=== PATIENT | male | born 1960 | race African-American/Black ===

== ENCOUNTER 2021-09-08 14:17 | Inpatient (IN) | payer MEDICARE, OTHER ==
[~2021-09-08] VITALS: Ht 172.7 cm; Wt 116.6 kg
--- NOTE | 2021-09-08 14:30 | NUR ---
BIB FAMILY TO ER,C/O ACUTE SOB NOTED TODAY - ABOUT 2 HOURS AGO ALERT AND ORIENTED.KEPT COMFORTABLE IN BED.PATIENT ON 2LPM OXYGEN VIA CANULA SATURATING @ 98%. SAFETY PRECAURIONS MAINTAINED
[2021-09-08] MEDS ORDERED: IPRATROPIUM NEB FS 0.5 MG/2.5 ML AMPUL.NEB NEB ONE (15:00)
[2021-09-08] MEDS ORDERED: ALBUTEROL FS 2.5 MG/3 ML VIAL.NEB NEB ONE (15:00)
[2021-09-08] MEDS ORDERED: IPRATROPIUM NEB FS 0.5 MG/2.5 ML AMPUL.NEB ONE (15:13)
[2021-09-08] MEDS ORDERED: ALBUTEROL FS 2.5 MG/3 ML VIAL.NEB ONE (15:13)
[2021-09-08 15:28] LABS: BASOPHILS % (AUTO) 0.2 % (0.0-2.0); EOSINOPHILS % (AUTO) 1.8 % (0.0-6.0); HEMATOCRIT 30 % (39-51); HEMOGLOBIN 9.8 g/dL (13.5-17.5); LYMPHOCYTES # (AUTO) 1.3 K/uL (0.8-4.8); LYMPHOCYTES % (AUTO) 17.3 % (20.0-44.0); MEAN CORPUSCULAR HGB CONC 32 g/dl (31.0-36.0); MEAN CORPUSCULAR VOLUME 90 fL (80-96); MONOCYTES # (AUTO) 0.6 K/uL (0.1-1.30); MONOCYTES % (AUTO) 7.8 % (2.0-12.0); NEUTROPHILS # (AUTO) 5.5 K/uL (1.8-8.9); NEUTROPHILS % (AUTO) 72.9 % (43.0-81.0); PLATELET COUNT (AUTO) 189 K/uL (150-450); RED BLOOD CELL COUNT(AUTO) 3.36 MIL/uL (4.5-6.0); WHITE BLOOD COUNT (AUTO) 7.5 K/uL (4.3-11.0)
--- NOTE | 2021-09-08 15:31 | NUR ---
COVID 19 SWAB COLLECTED AND SEND TO LAB
--- NOTE | 2021-09-08 15:31 | NUR ---
INFLUENZA SWAB COLLECTED AND SEND TO LAB
[2021-09-08 15:51] LABS: ALANINE AMINOTRANSFERASE 29 U/L (12-78); ALBUMIN 3.6 g/dL (3.4-5.0); ALKALINE PHOSPHATASE 117 U/L (46-116); ASPARTATE AMINOTRANSFERASE 19 U/L (15-37); BILIRUBIN,DIRECT 0.1 mg/dL (0.0-0.2); BILIRUBIN,TOTAL 0.3 mg/dL (0.2-1.0); CALCIUM, SERUM 8.5 mg/dL (8.5-10.1); CARBON DIOXIDE 31 mmol/L (21-32); CHLORIDE 106 mmol/L (98-107); CREATININE 1.5 mg/dL (0.6-1.3); GLUCOSE 109 mg/dL (74-106); POTASSIUM 4.1 mmol/L (3.5-5.1); SODIUM SERUM 143 mmol/L (136-145); TOTAL PROTEIN, SERUM 8.4 g/dL (6.4-8.2); UREA NITROGEN, BLOOD 40 mg/dL (7-18)
--- NOTE | 2021-09-08 16:30 | NUR ---
New order from Dr. Nur for Case Management consult. SHELIA Parmar aware.
--- NOTE | 2021-09-08 17:07 | NUR ---
Patient and Mother (Ellen [phone]) are unable to provide home medication information at this time. Unable to update. Family member/Mother will provide information later.
[2021-09-08] MEDS ORDERED: ONDANSETRON HCL/PF 4 MG/2 ML VIAL IVP PRN (18:00)
[2021-09-08] MEDS ORDERED: ZOLPIDEM TARTRATE 5 MG TABLET PO PRN (18:00)
[2021-09-08] MEDS ORDERED: DEXTROSE 50%-WATER 50 ML DISP.SYRIN IV PRN (18:00)
[2021-09-08] MEDS ORDERED: IV NS 0.9% 1,000 ML IV PRN (18:00)
[2021-09-08] MEDS ORDERED: Z GUARD REMEDY 2 OZ OINT TP PRN (18:00)
[2021-09-08] MEDS ORDERED: MAGNESIUM HYDROXIDE 30 ML UDC PO PRN (18:00)
[2021-09-08] MEDS ORDERED: ACETAMINOPHEN 325 MG TABLET PO PRN (18:00)
[2021-09-08] MEDS ORDERED: MAG HYDROX/AL HYDROX/SIMETH 30 ML UDC PO PRN (18:00)
--- NOTE | 2021-09-08 18:55 | NUR ---
EFRAIN CALLED IN TO KEMAR GEORGE @3WEST. PATIENT WILL BE PENDING TRANSFER TO ROOM 308-2
[2021-09-08] MEDS ORDERED: INSU100V7 SQ (19:09)
[2021-09-08] MEDS ORDERED: ALBU8.5H8 IH (19:09)
[2021-09-08] MEDS ORDERED: OXYC-128 PO (19:09)
[2021-09-08] MEDS ORDERED: DILT-32 PO (19:09)
[2021-09-08] MEDS ORDERED: LORA-259 PO (19:09)
[2021-09-08] MEDS ORDERED: TERA10CA4 PO (19:09)
[2021-09-08] MEDS ORDERED: BACL10TA PO (19:09)
[2021-09-08] MEDS ORDERED: POLY15DR40 EACHEYE (19:09)
[2021-09-08] MEDS ORDERED: HYDR-4076 PO (19:09)
[2021-09-08] MEDS ORDERED: BRIM5DRO3 EACHEYE (19:09)
[2021-09-08] MEDS ORDERED: GABA600T12 PO (19:09)
[2021-09-08] MEDS ORDERED: POTA10TA10 PO (19:09)
[2021-09-08] MEDS ORDERED: FLUT1BLS6 INH (19:09)
[2021-09-08] MEDS ORDERED: HYDR-500 PO (19:09)
[2021-09-08] MEDS ORDERED: FURO-144 PO (19:09)
--- NOTE | 2021-09-08 19:30 | NUR ---
RN ADMITTING NOTE PATIENT ER REPORT RECEIVED FROM CHAD GEORGE. PATIENT IS TRANSFERRED VIA GURNEY. PATIENT ON 5 L OF OXYGEN SUPPLEMENTATION. SOB AND SHALLOW BREATHING NOTED. PATIENT IS A/O X 4, ABLE TO MAKE NEEDS KNOWN. SKIN ASSESSMENT COMPLETED AND SKIN ISSUES NOTED. PATIENTS BELONGINGS INVENTORIED. NO PAIN AT THIS TIME. PATIENT'S MOTHER BROUGHT PATIENT'S WHEELCHAIR AND BELONGINGS. PATIENT HAS A LAC 20 G, PATENT AND INTACT. ORIENTED PATIENT TO THE ROOM, RN, GEOFF. SAFETY MEASURES IMPLEMENTED. HOB ELEVATED, CALL LIGHT WITHIN REACH, SIDE RAILS UP. WILL MONITOR PATIENT CLOSELY.
[2021-09-08] MEDS: methylPREDNISolone SOD SUCC 40 MG/ML VIAL IV SCH (20:57)
[2021-09-08] MEDS: ENOXAPARIN SODIUM 40 MG/0.4 ML DISP.SYRIN SQ SCH (20:59)
[2021-09-08] MEDS: BLOOD SUGAR DIAGNOSTIC 1 EACH STRIP IN SCH (21:18)
[2021-09-08] MEDS: INSULIN REGULAR, HUMAN 100 UNIT/ML 3 ML VIAL SQ PRN (21:54)
--- NOTE | 2021-09-08 22:00 | NUR ---
RN NOTE BS 135 MG/DL. 2 UNITS OF REGULAR INSULIN GIVEN. SNACKS PROVIDED.
[2021-09-08] MEDS: MORPHINE SULFATE INJ 2 MG/ML DISP.SYRIN IV PRN (23:01)
--- NOTE | 2021-09-08 23:01 | NUR ---
RN NOTE MORPHINE GIVEN FOR PAIN ON SACRAL AREA. WILL REASSESS PAIN
--- NOTE | 2021-09-09 01:10 | NUR ---
RN NOTE IV ON LAC INFILTRATED. PATIENT REFUSES ICE PACK, EXTREMITY ELEVATED. IV CATHETER REMOVED. PATIENT REFUSES INSERTION AT THIS TIME. WILL TRY AT A LATER TIME.
--- NOTE | 2021-09-09 03:58 | NUR ---
RN NOTE INSERTED 22 G ON R WRIST, PATENT AND INTACT.
[2021-09-09] MEDS: methylPREDNISolone SOD SUCC 40 MG/ML VIAL IV SCH ×3 (05:23→21:42)
[2021-09-09] MEDS: MORPHINE SULFATE INJ 2 MG/ML DISP.SYRIN IV PRN ×4 (05:23→23:31)
[2021-09-09] MEDS: INSULIN REGULAR, HUMAN 100 UNIT/ML 3 ML VIAL SQ PRN ×4 (06:21→23:11)
[2021-09-09 06:47] LABS: HEMATOCRIT 29 % (39-51); HEMOGLOBIN 9.5 g/dL (13.5-17.5); LYMPHOCYTES # (AUTO) 0.5 K/uL (0.8-4.8); LYMPHOCYTES % (AUTO) 7.8 % (20.0-44.0); MEAN CORPUSCULAR HGB CONC 33 g/dl (31.0-36.0); MEAN CORPUSCULAR VOLUME 90 fL (80-96); MONOCYTES # (AUTO) 0.1 K/uL (0.1-1.30); MONOCYTES % (AUTO) 0.8 % (2.0-12.0); NEUTROPHILS # (AUTO) 5.6 K/uL (1.8-8.9); NEUTROPHILS % (AUTO) 91.4 % (43.0-81.0); PLATELET COUNT (AUTO) 178 K/uL (150-450); RED BLOOD CELL COUNT(AUTO) 3.19 MIL/uL (4.5-6.0); WHITE BLOOD COUNT (AUTO) 6.1 K/uL (4.3-11.0)
[2021-09-09] MEDS: BLOOD SUGAR DIAGNOSTIC 1 EACH STRIP IN SCH ×4 (06:51→23:07)
[2021-09-09 07:22] LABS: CALCIUM, SERUM 8.7 mg/dL (8.5-10.1); CREATININE 1.2 mg/dL (0.6-1.3); MAGNESIUM 2.1 mg/dL (1.8-2.4); PHOSPHORUS 3.2 mg/dL (2.5-4.9)
--- NOTE | 2021-09-09 07:41 | NUR ---
RN CLOSING NOTE PATIENT ON 3L OF O2 SUPPLEMENT. TOLERATING WELL. PATIENT NOT IN ANY DISTRESS AT THIS TIME. R WRIST 22 G, PATENT AND INTACT. ENDORSED TO DAY SHIFT NURSE FOR TOMI.
--- NOTE | 2021-09-09 07:53 | NUR ---
WOUND CARE CONSULT: PT PRESENTS WITH SACRAL STAGE 4 ULCER WITH 2 OPENINGS, PRESENT ON ADMISSION. SCARS NOTED TO RT HIP AREA AND LEFT ELBOW. SURGICAL CONSULT CALLED TO DR JOLLY. RECOMMENDATIONS MADE FOR SKIN PROTECTION. DISCUSSED WITH NURSING STAFF. DIETARY CONSULT IN PLACE. PT IS ON SERENA ISOFLEX LOW AIRLOSS BED. IN AGREEMENT WITH PLAN OF CARE. Addendum: 09/09/21 at 0755 by ROBERTA PITTMAN WNDNU Amended: Links added.
[2021-09-09 08:00] VITALS: BP 154/79
[2021-09-09 08:24] LABS: THYROID STIMULATING HORMONE 0.746 uIU/mL (0.358-3.74)
[2021-09-09] MEDS ORDERED: DOCU-141 PO (08:40)
[2021-09-09] MEDS ORDERED: [UNRECOGNIZED DRUG - CODE] PO (08:40)
[2021-09-09] MEDS ORDERED: CHOL100062 PO (08:40)
[2021-09-09] MEDS ORDERED: LIDO30AD10 TP (08:40)
[2021-09-09] MEDS ORDERED: CITA10TA9 PO (08:40)
[2021-09-09] MEDS ORDERED: FERR325T23 PO (08:40)
[2021-09-09] MEDS ORDERED: ASCO-352 PO (08:40)
--- NOTE | 2021-09-09 08:56 | NUR ---
COVID VACCINE: [employer] BRAND; 1ST DOSE: MARCH 05 2021. 2ND DOSE: MAR 26 2021.
[2021-09-09] MEDS: PANTOPRAZOLE 40 MG TABLET.DR PO SCH (10:00)
--- NOTE | 2021-09-09 11:30 | NUR ---
pt. net front end developer light or yelling out continually for nurse.pt's mother in and in agrrement with pt. that nurse should be right there.admission discharge rn raghavendra in to speak with mom and pt. regarding their complaints. rn found pt. holding home use inhaler(orange container) in lt. hand refusing to give up.advised against this as he's already receiving breathing txs from hosp.pt. stated he should be more involved in care.wants very freq. adjustment of position in bed and pillows.
--- NOTE | 2021-09-09 12:00 | NUR ---
faith awad in and probed sacral wd. to follow up with orders.
[2021-09-09] MEDS ORDERED: HOME MED MISCELLANEOUS XX SCH ×2 (13:00)
[2021-09-09] MEDS: GLUCERNA SHAKE 237 ML CAN PO SCH ×2 (13:30→17:00)
--- NOTE | 2021-09-09 13:58 | NUR ---
SS Consult requested SS. will follow-up at a later time.
[2021-09-09] MEDS: BRIMONIDINE TARTRATE OPHT SOLN 5 ML BOTTLE EACHEYE SCH ×2 (14:38→21:44)
[2021-09-09] MEDS: GABAPENTIN 300 MG CAPSULE PO SCH ×2 (14:39→19:09)
[2021-09-09] MEDS: CITALOPRAM HYDROBROMIDE 10 MG TABLET PO SCH (14:39)
[2021-09-09] MEDS: POLYVINYL ALCOHOL 15 ML BOTTLE OP SCH ×2 (14:39→21:44)
[2021-09-09] MEDS: DOCUSATE SODIUM 100 MG CAPSULE PO SCH (14:40)
[2021-09-09] MEDS: BACLOFEN (10 MG) 10 MG TABLET PO SCH ×2 (14:40→21:42)
[2021-09-09] MEDS: ASCORBIC ACID 500 MG TABLET PO SCH (14:40)
[2021-09-09] MEDS: hydrALAZINE HCL 25 MG TABLET PO SCH ×2 (14:40→19:10)
[2021-09-09 17:39] VITALS: BP 125/71
[2021-09-09] MEDS ORDERED: VITAMINS A AND D 56.7 GM TUBE TP PRN (18:00)
--- NOTE | 2021-09-09 18:00 | NUR ---
several times rn attempted to do sacral packing,and pt. stalling.to endorse to marly. shift.
--- NOTE | 2021-09-09 19:10 | NUR ---
medicated x 2 with morphine for buttocks pain.
--- NOTE | 2021-09-09 19:45 | NUR ---
MS/RN OPENING NOTE RECEIVED PATIENT RESTING IN BED. AWAKE, ALERT AND ORIENTED X 4. ABLE TO MAKE NEEDS KNOWN. DENIES PAIN AT THIS TIME. CONTINUES ON O2 3L VIA NC WITH NO S/SX OF RESPIRATORY DISTRESS NOTED. IV ACCESS TO RIGHT WRIST #22G INTACT AND PATENT. CONTINUES ON IVF NS 0.9% @ 75ML/HR. SACRAL WOUND TO BE DRESSED TONIGHT - WOUND DRESSING ORDERS IN PLACE. CALL LIGHT WITHIN REACH. ASPIRATION, FALL AND SAFETY PRECAUTIONS MAINTAINED. WILL CONTINUE TO MONITOR.
[2021-09-09 20:00] VITALS: BP 119/57
[2021-09-09] MEDS: TERAZOSIN HCL 5 MG CAPSULE PO SCH (21:42)
[2021-09-09] MEDS: ENOXAPARIN SODIUM 40 MG/0.4 ML DISP.SYRIN SQ SCH (21:45)
[2021-09-09] MEDS: HYDROCODONE/APAP 5/325MG TABLET PO PRN (21:59)
[2021-09-09] MEDS: DAKINS QUARTER STRENGTH (0.125%) 480 ML BOTTLE TOP SCH (22:02)
[2021-09-09] MEDS: INSULIN GLARGINE, 100 UNIT/ML CARTRIDGE SQ SCH (23:09)
[2021-09-10] MEDS: BRIMONIDINE TARTRATE OPHT SOLN 5 ML BOTTLE EACHEYE SCH ×3 (04:11→21:24)
[2021-09-10] MEDS: BACLOFEN (10 MG) 10 MG TABLET PO SCH ×3 (04:12→21:25)
[2021-09-10] MEDS: MORPHINE SULFATE INJ 2 MG/ML DISP.SYRIN IV PRN ×4 (04:12→20:20)
[2021-09-10] MEDS: methylPREDNISolone SOD SUCC 40 MG/ML VIAL IV SCH ×4 (04:12→21:26)
[2021-09-10] MEDS: POLYVINYL ALCOHOL 15 ML BOTTLE OP SCH ×3 (04:12→21:25)
[2021-09-10] MEDS: BLOOD SUGAR DIAGNOSTIC 1 EACH STRIP IN SCH ×4 (06:24→22:58)
[2021-09-10] MEDS: INSULIN REGULAR, HUMAN 100 UNIT/ML 3 ML VIAL SQ PRN ×4 (06:27→22:57)
--- NOTE | 2021-09-10 06:40 | NUR ---
MS/RN CLOSING NOTE PATIENT CURRENTLY SLEEPING IN BED. ALERT AND ORIENTED X 4. ABLE TO MAKE NEEDS KNOWN. DENIES PAIN AT THIS TIME. CONTINUES ON O2 4L VIA NC WITH NO S/SX OF RESPIRATORY DISTRESS NOTED. IV ACCESS TO RIGHT WRIST #22G INTACT AND PATENT. CONTINUES ON IVF NS 0.9% @ 75ML/HR. SACRAL WOUND CHANGED TONIGHT WITH CURRENT DRESSING ORDERS. CALL LIGHT WITHIN REACH. ASPIRATION, FALL AND SAFETY PRECAUTIONS MAINTAINED. WILL ENDORSE PLAN OF CARE TO ONCOMING SHIFT.
[2021-09-10 06:47] LABS: CALCIUM, SERUM 8.7 mg/dL (8.5-10.1); CREATININE 1.3 mg/dL (0.6-1.3); POTASSIUM 4.9 mmol/L (3.5-5.1)
--- NOTE | 2021-09-10 07:30 | NUR ---
MS RN OPENING NOTES RECEIVED PATIENT RESTING IN BED. AWAKE, ALERT AND ORIENTED X 4. ABLE TO MAKE NEEDS KNOWN. DENIES PAIN AT THIS TIME. ON O2 4L VIA NC WITH NO S/SX OF RESPIRATORY DISTRESS NOTED. NO COMPLAINTS OF PAIN AT THIS TIME. IV ACCESS TO RIGHT WRIST #22G INTACT AND PATENT. NOTED WITH ST 4 SACRAL WOUND. SAFETY PRECAUTIONS IN PLACE: BED ON LOWEST LOCKED POSITION, SIDE RAILS UP X 2, MILLIE LIGHT WITHIN EASY REACH. WILL CONTINUE TO MONITOR ACCORDINGLY.
[2021-09-10 08:00] VITALS: BP 150/89
[2021-09-10] MEDS: GLUCERNA SHAKE 237 ML CAN PO SCH ×3 (08:39→17:17)
[2021-09-10] MEDS: ASCORBIC ACID 500 MG TABLET PO SCH (08:40)
[2021-09-10] MEDS: CHOLECALCIFEROL 1,000 UNIT TABLET (VIT D3) PO SCH (08:40)
[2021-09-10] MEDS: GABAPENTIN 300 MG CAPSULE PO SCH ×3 (08:40→16:44)
[2021-09-10] MEDS: DOCUSATE SODIUM 100 MG CAPSULE PO SCH (08:40)
[2021-09-10] MEDS: PANTOPRAZOLE 40 MG TABLET.DR PO SCH (08:41)
[2021-09-10] MEDS: FERROUS SULFATE (325 MG) 325 MG/TAB TABLET PO SCH (08:41)
[2021-09-10] MEDS: CITALOPRAM HYDROBROMIDE 10 MG TABLET PO SCH (08:41)
[2021-09-10] MEDS: hydrALAZINE HCL 25 MG TABLET PO SCH ×3 (08:43→16:44)
[2021-09-10] MEDS: DILTIAZEM HCL CD 120 MG PO SCH (08:43)
[2021-09-10] MEDS: LIDOCAINE 5% (PATCH) 1 EA PATCH TP SCH (08:45)
[2021-09-10] MEDS: DAKINS QUARTER STRENGTH (0.125%) 480 ML BOTTLE TOP SCH (08:47)
[2021-09-10] MEDS: FLUTICASONE/VILANTEROL 1 EACH BLST.W.DEV IH SCH (09:02)
--- NOTE | 2021-09-10 09:02 | NUR ---
RN NOTES PATIENT HAS C/O OF PAIN ON SACRAL AREA WITH PAIN SCALE OF 9/10. DUE MORPHINE GIVEN ORDERED.
--- NOTE | 2021-09-10 11:37 | NUR ---
SS Consult: SS consult requested for a fall at home. Pt. is a 61-year-old Black male who was admitted to [facility] for shortness of breath and a fall at home. Per the EMR, the pt. was brought to the ER by a friend. SW met with pt. bedside and pt. is alert and oriented x4. The pt. appears unkempt and provided appropriate eye contact. Pt. was in a depressed mood with flat affect and pt. presents guarded. The pt. has slurred speech possibly due to some missing teeth. The pt. stated they were living at a fdc facility in [place], [place] but did not disclose which one. Per pt., he recently moved in with his mother, Ellen ([phone]) at ([address]), where he fell trying while transferring into his wheelchair. Pt. stated he is not ambulatory and uses a wheelchair. Pt. stated he is dependent with some of his ADLs (showering, getting dressed). Pt. denied history of psychiatric diagnosis. Pt. denies SI/HI and denies visual/auditory hallucinations. Plan: Upon discharge, pt. stated he will go to [facility] [[address] [place] [place] [address]; [phone]]. CM notes confirm that pt. will be going to [facility]. SW provided pt. with Senior resources and the pt. accepted them. Ellen asked about [facility] coverage for dental & optometry procedures for pt. SW encouraged patient and family to notify CM or SW at facility to assist with this and they were agreeable. SW will remain available as needed. Senior Resources provided include: ABUSE PREVENTION: ELDER ABUSE HOTLINE (07/06) ADULT PROTECTIVE SERVICES HOTLINE LONG-TERM CARE [facility] Region AREA ON AGING (HOTLINE) ADULT DAY HEALTH CARE CARE CENTERS: Private pay or Medi-tk funded adult day care [place] [facility] , [facility] , [facility] , [facility] Day Health Care , [facility] Day [facility] Care , [facility] Adult [facility] Center , [facility] , [facility] , [place] ALZHEIMERS DISEASE/DEMENTIA: Alzheimers Association Helpline [facility] Chapter www.alz.org/[facility] of Aging www.lacity.org Family Caregiver [place]on www.caregiver.org [place] Caregiver Resources Center/Family Support www.[facility].org CANCER RESOURCES: [place] Cancer Society www.cancer.org Cancer Support Community www.CancerSupportVvsb.org: CancerCare www.cancercare.org [facility] Cancer Support [place] www.[facility].org [facility] HEALTH ASSOCIATIONS: AARP www.aarp.org ALS Association (ask for Maricel) www.als.org [place] Diabetes Association www.diabetes.org [place] Heart Association www.heart.org [place] Lung Association www.lungusa.org [place] Parkinson Disease Association www.apdaparkinson.org [place]can [place] , www.redcross.org Arthritis Foundation www.arthritis.org Crohns & Colitis Foundation of Moroccan www.ccfa.org/chapters/padma National Multiple Sclerosis Society www.nationalmssociety.org Myasthenia Gravis Foundation www.myasthenia-ca.org National Stroke Association www.stroke.org CONSERVATORSHIP & GUARDIANSHIP: AARP Felicity Armendariz Legal Services Center for Health Care Rights Eldercare Information and Referral Director Of Manufacturing Operations [facility]: [facility] Referral Service [facility] Legal Services Office of the Public Guardian [place] EYESIGHT DISORDER RESOURCES: [place] Macular Degeneration Foundation [facility] www.[facility].org GRIEF AND BEREAVEMENT RESOURCES: The Gathering Place , [facility] THE SCRANTON Connection , [facility] , [place] HEARING DISORDER RESOURCES: [place] Telephone Access Program Deaf and Disabled Telecommunications Program www.ddtp.cpu.ca.gov HearRx Hearing Centers ([place]) Better Hearing Systems , [place] GLAD ([facility] Agency on Deafness) V/ TTY; Frame Stylist , [facility] Hearing [facility] -low income hearing aid assistance www.Beacon Readerhearingfoundation.org [place] [facility] , [place] HELP AT HOME CAREGIVER SUPPORT: In Home Support Services (Must have Medi-Tk to be eligible) *Ask for a list of agencies that provide services to assist with care in the home. Local Senior Centers also have listings of care providers. HOME SAFETY MODIFICATIONS AND EQUIPMENT: Senior centers have additional referrals. CT Tynker and Boommy Fashion Investment Dept. Handyworker Program (low income) or Visit http://hcidla.lacity.org/thf-pmrdxn-if for more information National Seating and Mobility and/or ; Forever Active www.foreverInvo Biosciencemed.InVenture Stay Home Safe www.Stayhomesafe.com LIFE ALERT RESPONSE SYSTEM: Culture Jam Services 995-232-4362 www. Backtrace I/O Life Alert 702-963-2675 www.Aasonn Life Station 378-775-9761 www.HeyStaks.InVenture Safe Return 012-611-7534 www.alz.or/safereturn Cell Phones for Seniors www.iSnap MEALS AND FOOD PROGRAMS: [place] Meals on Wheels [phone] [place] Meals on Wheels [phone] [facility] [phone] [place] to the Homebound [phone] [facility] to the Homebound [phone] [facility] to the Homebound [phone] [facility] to the Homebound [phone] [facility] Bi Hussein [phone] [facility] [phone] ONE Generation [phone] [facility] [phone] [facility] [phone] Meals on Wheels [phone] For all ages: $6.85/ meal w side. Delivered M-F from 10 am-1pm. Application and payment is done over the phone. Frozen meals available for weekends. Emergency Food [facility]altem[facility] [phone] [facility] Organ Assembler [phone] [facility] [phone] [facility]- Brown bag lunches [phone] [facility] [phone] MEAL/GROCERY DELIVERY PROGRAMS: [facility] Gourmet Meals [phone]- [facility] [phone]- [facility] Magic Kitchen [phone] Moms Meals [phone] (ask Sotelo for Discount Select grocery stores may provide delivery. MEDICAL INSURANCE SUPPORT SERVICES: Center for Health Care Rights [phone] Health Insurance Counseling/Advocacy Programs (HICAP)-Must have Medicare. Offers counseling for Medi-Tk eligibility [phone] Department of Public Organ Assembler [phone] www.primary children's hospital.ca.gov Medicare 306-747-9489 www.socialsecurity.org Social Security [phone] SENIOR ACTIVITY PROGRAMS: *Contact a local senior center, adult school, recreation facility or community college for education, fitness, recreation, and social programs. Aquatic Therapy and Adapted Exercise programs through [facility] [phone] Encore at [facility] [phone] www.vencor hospital/encore U- Senior Friends [phone] [place] Senior Programs 828-000-6679 www.oasisnet.org Suddenly 65 www.wykhxcyq99.com SENIOR CENTERS: [facility] [phone] [facility] [phone] [facility] [phone] [facility] [phone] [facility] [phone] [facility] [phone] [facility] [phone] [facility] [phone] One Generation, [facility] [phone] [facility] [phone] [facility] [phone] [facility] [phone] [facility] [phone] TRANSPORTATION: Local [facility] Center Centers may have applications for transportation programs and additional resources. ACCESS Services [phone] Transportation for seniors and disabled persons 7 days a week requiring 254 hr. advance reservation. Must apply and register for program noelle eligible. Orbis Education RIDE 182-167-9711 or [phone] Transportation for seniors and persons with ADA card/metro disabled card in the [facility]. M-F only. Must register for services. ONE GENERATION [phone] Serves 65 years + in conjunction with city ride program. Must be registered with both programs. A to B Transport [phone] Provides wheelchair/gurney van service. Adult Medical Transport [phone] Accepts Medi-tk with prior authorization. Care Van [phone] Provides wheelchair Transport. [facility] Wide Transportation [phone] Provides gurney service [facility] [phone] Gurney Transport. [facility] Town Transportation [phone] wheelchair & gurney transport [facility] Transportation [phone] wheelchair & gurney transport [place] Non-Emergency Transport [phone] wheelchair & gurney transport [facility] Living [place] [phone] Short Term Transportation primarily for adults with disabilities on social security income. Nominal fee may apply and a reservation is required. Ideal Binary Cab [phone] or [phone] [facility] [phone] [place] [address] Services [phone] For additional programs & services VETERANS RESOURCES: Submissions for Aid and Attendance should be done directly to Federal VA office locatd at : [address] [address] X110 National Caregiver Support Line [phone] [facility] [place] [facility] Field Office [phone] [place] Department of Dille Affairs [phone] Pension Information [phone]
--- NOTE | 2021-09-10 12:00 | NUR ---
RN NOTES BLOOD SUGAR CHECKED, RESULT 144, INSULIN COVERAGE GIVEN ORDERED.
--- NOTE | 2021-09-10 15:26 | NUR ---
RN NOTES PATIENT HAS C/O OF PAIN ON SACRAL AREA WITH PAIN SCALE OF 9/10. DUE MORPHINE GIVEN ORDERED. WILL CONTINUE TO MONITOR ACCORDINGLY.
[2021-09-10] MEDS: hydrOXYzine 10 MG TABLET PO PRN (15:57)
[2021-09-10 16:00] VITALS: BP 153/87
[2021-09-10] MEDS: HYDROCODONE/APAP 5/325MG TABLET PO PRN (16:49)
[2021-09-10] MEDS: VITAMINS A AND D 56.7 GM TUBE TP SCH (16:49)
--- NOTE | 2021-09-10 16:49 | NUR ---
RN NOTES PATIENT HAS C/O OF PAIN ON SACRAL AREA WITH PAIN SCALE OF 7/10. DUE NORCO GIVEN ORDERED.
--- NOTE | 2021-09-10 17:24 | NUR ---
RN NOTES BLOOD SUGAR CHECKED, RESULT 257, INSULIN COVERAGE GIVEN ORDERED
[2021-09-10] MEDS: ALBUTEROL FS 2.5 MG/3 ML VIAL.NEB NEB PRN (17:46)
--- NOTE | 2021-09-10 18:48 | NUR ---
MS RN CLOSING NOTES RECEIVED PATIENT RESTING IN BED. AWAKE, ALERT AND ORIENTED X 4. ABLE TO MAKE NEEDS KNOWN. DENIES PAIN AT THIS TIME. ON O2 4L VIA NC WITH NO S/SX OF RESPIRATORY DISTRESS NOTED. NO COMPLAINTS OF PAIN AT THIS TIME. IV ACCESS TO RIGHT WRIST #22G INTACT AND PATENT. NOTED WITH ST 4 SACRAL WOUND. SAFETY PRECAUTIONS IN PLACE: BED ON LOWEST LOCKED POSITION, SIDE RAILS UP X 2, CALL LIGHT WITHIN EASY REACH. ALL NEEDS ATTENDED AND MET, DUE MEDS GIVEN ORDERED. WILL ENDORSE TO ONCOMING SHIFT FOR TOMI.
--- NOTE | 2021-09-10 19:30 | NUR ---
MS RN OPENING NOTES PATIENT IS ALERT AND ORIENTED X4. PATIENT IS ON 4 LPM OF OXYGEN VIA NASAL CANNULA WITH NO RESPIRATORY DISTRESS NOTED. PATIENT HAS AN IV ACCESS ON HIS RIGHT WRIST GAUGE #22, WHICH IS INTACT, PATENT, AND FLUSHING WELL. PATIENT'S NOTED WITH A STAGE 4 SACRAL WOUND. PATIENT'S IN NO ACUTE DISTRESS AT THIS TIME: SAFETY MEASURES IN PLACE: BED LOCKED, BED ALARM ON, SIDE RAILS UPX3, AND CALL LIGHT WITHIN REACH OF THE PATIENT. WILL CONTINUE TO MONITOR THE PATIENT.
[2021-09-10 20:00] VITALS: BP 131/71
[2021-09-10] MEDS: MUPIROCIN OINT 2% 22 GM TUBE NS SCH (21:24)
[2021-09-10] MEDS: TERAZOSIN HCL 5 MG CAPSULE PO SCH (21:26)
[2021-09-10] MEDS: ENOXAPARIN SODIUM 40 MG/0.4 ML DISP.SYRIN SQ SCH (21:49)
[2021-09-10] MEDS: INSULIN GLARGINE, 100 UNIT/ML CARTRIDGE SQ SCH (22:56)
[2021-09-10] MEDS: oxyCODONE/APAP (5/325 MG) 1 UDTAB TABLET PO PRN (23:29)
[2021-09-11] MEDS: BACLOFEN (10 MG) 10 MG TABLET PO SCH ×3 (05:43→21:57)
[2021-09-11] MEDS: BRIMONIDINE TARTRATE OPHT SOLN 5 ML BOTTLE EACHEYE SCH ×3 (05:44→21:55)
[2021-09-11] MEDS: POLYVINYL ALCOHOL 15 ML BOTTLE OP SCH ×3 (05:44→21:54)
[2021-09-11] MEDS: BLOOD SUGAR DIAGNOSTIC 1 EACH STRIP IN SCH ×4 (06:50→22:20)
[2021-09-11] MEDS: INSULIN REGULAR, HUMAN 100 UNIT/ML 3 ML VIAL SQ PRN ×2 (06:52→22:24)
[2021-09-11 06:54] LABS: BASOPHILS % (AUTO) 0.1 % (0.0-2.0); HEMATOCRIT 30 % (39-51); HEMOGLOBIN 9.6 g/dL (13.5-17.5); LYMPHOCYTES # (AUTO) 0.7 K/uL (0.8-4.8); LYMPHOCYTES % (AUTO) 6.8 % (20.0-44.0); MEAN CORPUSCULAR HGB CONC 32 g/dl (31.0-36.0); MEAN CORPUSCULAR VOLUME 95 fL (80-96); MONOCYTES # (AUTO) 0.4 K/uL (0.1-1.30); MONOCYTES % (AUTO) 4.1 % (2.0-12.0); PLATELET COUNT (AUTO) 142 K/uL (150-450); WHITE BLOOD COUNT (AUTO) 10.1 K/uL (4.3-11.0)
[2021-09-11] MEDS: MORPHINE SULFATE INJ 2 MG/ML DISP.SYRIN IV PRN ×3 (07:00→21:01)
[2021-09-11 07:27] LABS: CALCIUM, SERUM 8.6 mg/dL (8.5-10.1); CREATININE 1.6 mg/dL (0.6-1.3)
--- NOTE | 2021-09-11 07:50 | NUR ---
MS RN OPENING NOTES PATIENT IS A/OX4. PATIENT IS ON 4 LPM OF OXYGEN VIA NASAL CANNULA WITH NO RESPIRATORY DISTRESS NOTED. PATIENT HAS AN IV ACCESS ON HIS RIGHT WRIST GAUGE #22, WHICH IS INTACT, PATENT, AND FLUSHING WELL. PATIENT'S NOTED WITH A STAGE 4 SACRAL WOUND. PT'S APPEARS STABLE, AND WAS ASSESSED FOR ANY NEW ADVENTITIOUS FINDINGS. SAFETY MEASURES IN PLACE SUCH BED LOCKED, BED ALARM ON, SIDE RAILS UPX3, AND CALL LIGHT WITHIN REACH OF THE PATIENT. WILL CONTINUE TO MONITOR THE PATIENT.
[2021-09-11 08:00] VITALS: BP 139/86
[2021-09-11] MEDS ORDERED: methylPREDNISolone SOD SUCC 40 MG/ML VIAL IV SCH (08:30)
[2021-09-11] MEDS: GLUCERNA SHAKE 237 ML CAN PO SCH ×3 (08:43→17:36)
[2021-09-11] MEDS: ASCORBIC ACID 500 MG TABLET PO SCH (08:46)
[2021-09-11] MEDS: CITALOPRAM HYDROBROMIDE 10 MG TABLET PO SCH (08:47)
[2021-09-11] MEDS: PANTOPRAZOLE 40 MG TABLET.DR PO SCH (08:47)
[2021-09-11] MEDS: hydrALAZINE HCL 25 MG TABLET PO SCH ×3 (08:47→17:35)
[2021-09-11] MEDS: FERROUS SULFATE (325 MG) 325 MG/TAB TABLET PO SCH (08:47)
[2021-09-11] MEDS: DOCUSATE SODIUM 100 MG CAPSULE PO SCH (08:48)
[2021-09-11] MEDS: DILTIAZEM HCL CD 120 MG PO SCH (08:48)
[2021-09-11] MEDS: CHOLECALCIFEROL 1,000 UNIT TABLET (VIT D3) PO SCH (08:48)
[2021-09-11] MEDS: GABAPENTIN 300 MG CAPSULE PO SCH ×3 (08:48→17:35)
[2021-09-11] MEDS: LIDOCAINE 5% (PATCH) 1 EA PATCH TP SCH (08:49)
[2021-09-11] MEDS: hydrOXYzine 10 MG TABLET PO PRN (09:02)
[2021-09-11] MEDS: FLUTICASONE/VILANTEROL 1 EACH BLST.W.DEV IH SCH (09:08)
[2021-09-11] MEDS: DAKINS QUARTER STRENGTH (0.125%) 480 ML BOTTLE TOP SCH (09:09)
[2021-09-11] MEDS: MUPIROCIN OINT 2% 22 GM TUBE NS SCH ×2 (09:09→21:58)
[2021-09-11] MEDS: VITAMINS A AND D 56.7 GM TUBE TP SCH ×2 (09:09→17:40)
[2021-09-11] MEDS: oxyCODONE/APAP (5/325 MG) 1 UDTAB TABLET PO PRN (11:33)
--- NOTE | 2021-09-11 14:30 | NUR ---
MS RN NOTE WOUND CARE DONE ORDERED. PROCEDURE TOLERATED WELL. WILL CONTINUE TO MONITOR PATIENT.
[2021-09-11] MEDS ORDERED: IV NS 0.9% 1,000 ML IV ONE (15:00)
[2021-09-11] MEDS: ALBUTEROL FS 2.5 MG/3 ML VIAL.NEB NEB PRN ×2 (15:39→21:18)
[2021-09-11 16:00] VITALS: BP 133/61
--- NOTE | 2021-09-11 18:41 | NUR ---
MS RN CLOSING NOTES AWAKE, ALERT AND ORIENTED X 4. ABLE TO MAKE NEEDS KNOWN. PT'S PAIN IS MANAGED AT THIS TIME W/ PRESCRIBED PAIN MANAGEMENT MEDS. ON O2 4L VIA NC WITH NO S/SX OF RESPIRATORY DISTRESS NOTED. IV ACCESS TO LEFT WRIST #22G INTACT AND PATENT. NOTED WITH ST 4 SACRAL WOUND. SAFETY PRECAUTIONS IN PLACE: BED ON LOWEST LOCKED POSITION, SIDE RAILS UP X 2, CALL LIGHT WITHIN EASY REACH. ALL NEEDS ATTENDED AND MET, DUE MEDS GIVEN ORDERED. WILL ENDORSE TO ONCOMING SHIFT FOR CONTINUATION OF CARE.
[2021-09-11 20:00] VITALS: BP 136/71
[2021-09-11] MEDS: ENOXAPARIN SODIUM 40 MG/0.4 ML DISP.SYRIN SQ SCH (21:56)
[2021-09-11] MEDS: TERAZOSIN HCL 5 MG CAPSULE PO SCH (21:57)
[2021-09-11] MEDS: INSULIN GLARGINE, 100 UNIT/ML CARTRIDGE SQ SCH (22:22)
[2021-09-11] MEDS: LORAZEPAM 1 MG TABLET PO PRN (23:49)
[2021-09-12] MEDS: BRIMONIDINE TARTRATE OPHT SOLN 5 ML BOTTLE EACHEYE SCH ×3 (05:03→21:36)
[2021-09-12] MEDS: POLYVINYL ALCOHOL 15 ML BOTTLE OP SCH ×3 (05:04→21:36)
[2021-09-12] MEDS: BACLOFEN (10 MG) 10 MG TABLET PO SCH ×4 (05:06→21:36)
[2021-09-12] MEDS: BLOOD SUGAR DIAGNOSTIC 1 EACH STRIP IN SCH ×4 (07:08→21:37)
[2021-09-12] MEDS: INSULIN REGULAR, HUMAN 100 UNIT/ML 3 ML VIAL SQ PRN ×3 (07:09→22:31)
[2021-09-12] MEDS: MORPHINE SULFATE INJ 2 MG/ML DISP.SYRIN IV PRN ×2 (07:10→21:36)
--- NOTE | 2021-09-12 07:50 | NUR ---
MS RN OPENING NOTES RECEIVED PATIENT IN BED, AWAKE, A/O X4. PATIENT ON OXYGEN THERAPY AT 4 LPM VIA NASAL CANNULA; SOB PRESENT BUT SATURATING WELL AT THIS TIME. NO COMPLAINS OF PAIN AT THIS MOMENT. L WRIST IV ACCESS G #24 PRESENT; SL. SAFETY PRECAUTIONS IN PLACE; BED IN LOW POSITION AND LOCKED, RAILS UP x2, CALL LIGHT WITHIN REACH. WILL CONTINUE TO MONITOR PATIENT.
[2021-09-12] MEDS: hydrALAZINE HCL 25 MG TABLET PO SCH ×3 (09:00→16:22)
[2021-09-12] MEDS: FERROUS SULFATE (325 MG) 325 MG/TAB TABLET PO SCH (09:02)
[2021-09-12] MEDS: GLUCERNA SHAKE 237 ML CAN PO SCH ×3 (09:02→17:10)
[2021-09-12] MEDS: DOCUSATE SODIUM 100 MG CAPSULE PO SCH (09:02)
[2021-09-12] MEDS: CHOLECALCIFEROL 1,000 UNIT TABLET (VIT D3) PO SCH (09:03)
[2021-09-12] MEDS: ASCORBIC ACID 500 MG TABLET PO SCH (09:03)
[2021-09-12] MEDS: GABAPENTIN 300 MG CAPSULE PO SCH ×4 (09:03→16:23)
[2021-09-12] MEDS: PANTOPRAZOLE 40 MG TABLET.DR PO SCH (09:03)
[2021-09-12] MEDS: DILTIAZEM HCL CD 120 MG PO SCH (09:04)
[2021-09-12] MEDS: CITALOPRAM HYDROBROMIDE 10 MG TABLET PO SCH (09:05)
[2021-09-12] MEDS: FLUTICASONE/VILANTEROL 1 EACH BLST.W.DEV IH SCH (09:06)
[2021-09-12] MEDS: MUPIROCIN OINT 2% 22 GM TUBE NS SCH ×2 (09:07→22:08)
[2021-09-12] MEDS: VITAMINS A AND D 56.7 GM TUBE TP SCH ×2 (09:08→16:23)
[2021-09-12] MEDS: LIDOCAINE 5% (PATCH) 1 EA PATCH TP SCH (09:08)
[2021-09-12] MEDS: DAKINS QUARTER STRENGTH (0.125%) 480 ML BOTTLE TOP SCH (09:08)
--- NOTE | 2021-09-12 13:56 | NUR ---
MS RN NOTES PATIENT ASLEEP AND WITH MORE WHEEZING THAN BEFORE. HARD TO AWAKEN. WHEN AWAKEN FALLS BACK TO SLEEP. VS WNL BP 113/69 HR 85 O2 100 ON 5 L. CALLED RT AND NOTIFIED MD PER ORDER STAT ABG AND STAT CHEST X-RAY ORDERED.
--- NOTE | 2021-09-12 14:14 | NUR ---
rt note rt called to bedside for abg due to patient being lethargic. abg attempted patient wakes up and starts screaming curse words demanding for abg to be stopped and refuses the blood draw. rn shelbie hennessy. charge nurse noah hennessy. will continue to monitor.
--- NOTE | 2021-09-12 14:15 | NUR ---
MS RN NOTES PATIENT REFUSED HIS ABG. WHEN RT WAS TRYING TO DRAW BLOOD PATIENT WAS SCREAMING AND CALLING NAMES. PATIENT STATES HE REFUSES THIS PROCEDURE AND HE WANTS TO BE LEFT ALONE. CHARGE NURSE NOTIFIED AND CAME TO TALK TO THE PATIENT BUT HE WAS STILL REFUSING THE PROCEDURE. MADE AWARE.
[2021-09-12] MEDS ORDERED: IPRATROPIUM/ALBUTEROL INHALER IH SCH (17:30)
--- NOTE | 2021-09-12 18:56 | NUR ---
MS RN CLOSING NOTES PATIENT REMAINS IN BED, ASLEEP AT THIS TIME. PATIENT ON OXYGEN THERAPY AT 3 LPM VIA NASAL CANNULA; BREATHING EVEN BUT WHEEZING. NO COMPLAINS OF PAIN DURING SHIFT. L WRIST IV ACCESS G #24 PRESENT; SL. ALL NEEDS ATTENDED DURING THE DAY. SAFETY PRECAUTIONS IN PLACE; BED IN LOW POSITION AND LOCKED, RAILS UP x2, CALL LIGHT WITHIN REACH. WILL ENDORSE TO OFFSET PRESS OPERATOR APPRENTICE NURSE FOR TOMI.
--- NOTE | 2021-09-12 19:10 | NUR ---
MS/RN OPENING NOTE RECEIVED PATIENT RESTING IN BED. AWAKE, ALERT AND ORIENTED X 3. YELLING OUT AT TIMES. DENIES PAIN AT THIS TIME. CONTINUES ON O2 3L VIA NC WITH O2 SATS 98-100%. IV ACCESS TO LEFT WRIST #24G INTACT, PATENT AND SALINE LOCKED. HEAD OF BED ELEVATED WITH MULTIPLE PILLOWS IN PLACE. CALL LIGHT WITHIN REACH. ASPIRATION, FALL AND SAFETY PRECAUTIONS MAINTAINED. WILL CONTINUE TO MONITOR.
--- NOTE | 2021-09-12 19:45 | NUR ---
MS/RN NOTE PATIENT CONTINUING TO YELL OUT. ATTEMPTED TO TALK WITH PATIENT - PATIENT STATES HE DOES NOT FEEL WELL. FEELS LIKE HE "CANT BREATH". CURRENTLY ON O2 3L VIA NC. O2 SATS 99%. WILL NOTIFY RT.
[2021-09-12] MEDS: ALBUTEROL FS 2.5 MG/3 ML VIAL.NEB NEB PRN ×2 (19:55→22:31)
[2021-09-12] MEDS: IPRATROPIUM NEB FS 0.5 MG/2.5 ML AMPUL.NEB NEB PRN ×2 (19:55→22:31)
[2021-09-12 20:00] VITALS: BP 134/74
--- NOTE | 2021-09-12 20:40 | NUR ---
MS/RN NOTE SPOKE WITH PATIENT REGARDING RESPIRATORY STATUS. INFORMED HIM WE NEED TO BE ABLE TO DO CXR TO EVALUATE. PATIENT AGREEABLE. THERE'S CURRENTLY AN ACTIVE ORDER FOR CXR. NOTIFIED RADIOLOGY DEPARTMENT.
[2021-09-12] MEDS: TERAZOSIN HCL 5 MG CAPSULE PO SCH (21:37)
[2021-09-12] MEDS: ENOXAPARIN SODIUM 40 MG/0.4 ML DISP.SYRIN SQ SCH (21:38)
[2021-09-12] MEDS: INSULIN GLARGINE, 100 UNIT/ML CARTRIDGE SQ SCH (22:11)
[2021-09-12] MEDS: LORAZEPAM 1 MG TABLET PO PRN (23:10)
[2021-09-13] MEDS: oxyCODONE/APAP (5/325 MG) 1 UDTAB TABLET PO PRN (00:18)
[2021-09-13] MEDS: BRIMONIDINE TARTRATE OPHT SOLN 5 ML BOTTLE EACHEYE SCH ×2 (05:19→12:44)
[2021-09-13] MEDS: BACLOFEN (10 MG) 10 MG TABLET PO SCH ×2 (05:20→12:44)
[2021-09-13] MEDS: POLYVINYL ALCOHOL 15 ML BOTTLE OP SCH ×2 (05:20→12:44)
--- NOTE | 2021-09-13 06:10 | NUR ---
MS/RN CLOSING NOTE PATIENT CURRENTLY SLEEPING IN BED. ALERT AND ORIENTED X 3. ABLE TO MAKE NEEDS KNOWN. DENIES PAIN AT THIS TIME. CONTINUES ON O2 4L VIA NC WITH NO S/SX OF RESPIRATORY DISTRESS NOTED. IV ACCESS TO LEFT WRIST #24G INTACT, PATENT AND SALINE LOCKED. HEAD OF BED ELEVATED WITH MULTIPLE PILLOWS IN PLACE. CALL LIGHT WITHIN REACH. ASPIRATION, FALL AND SAFETY PRECAUTIONS MAINTAINED. WILL ENDORSE PLAN OF CARE TO ONCOMING SHIFT.
[2021-09-13] MEDS: BLOOD SUGAR DIAGNOSTIC 1 EACH STRIP IN SCH ×3 (06:27→17:06)
[2021-09-13 06:51] LABS: BASOPHILS % (AUTO) 0.2 % (0.0-2.0); EOSINOPHILS % (AUTO) 2.4 % (0.0-6.0); HEMATOCRIT 30 % (39-51); HEMOGLOBIN 9.6 g/dL (13.5-17.5); LYMPHOCYTES # (AUTO) 1.7 K/uL (0.8-4.8); LYMPHOCYTES % (AUTO) 21.5 % (20.0-44.0); MEAN CORPUSCULAR HGB CONC 32 g/dl (31.0-36.0); MEAN CORPUSCULAR VOLUME 91 fL (80-96); NEUTROPHILS # (AUTO) 5.2 K/uL (1.8-8.9); NEUTROPHILS % (AUTO) 63.9 % (43.0-81.0); PLATELET COUNT (AUTO) 148 K/uL (150-450); WHITE BLOOD COUNT (AUTO) 8.1 K/uL (4.3-11.0)
--- NOTE | 2021-09-13 07:33 | NUR ---
RN OPENING NOTES: RECEIVED PATIENT IN BED SLEEPING CALM AND COMFORTABLE. ALERT AND ORIENTED X 4. DENIES PAIN AT THIS TIME. CONTINUES ON O2 4L/MIN VIA NC .NO RESPIRATORY DISTRESS NOTED, NO SHORTNESS OF BREATH NOTED. IV ACCESS TO LEFT WRIST #24G INTACT, PATENT AND SALINE LOCKED. HEAD OF BED ELEVATED ALL THE TIMES. PILLOWS USED FOR COMFORT AND ELEVATION. CALL LIGHT WITHIN REACH. ASPIRATION, FALL AND SAFETY PRECAUTIONS MAINTAINED. BED LOCKED IN THE LOWEST POSITION. WILL CONTINUE TO MONITOR.
[2021-09-13 07:44] LABS: CALCIUM, SERUM 8.4 mg/dL (8.5-10.1); CREATININE 1.7 mg/dL (0.6-1.3); MAGNESIUM 2.2 mg/dL (1.8-2.4); PHOSPHORUS 3.2 mg/dL (2.5-4.9); POTASSIUM 4.3 mmol/L (3.5-5.1)
[2021-09-13 08:00] VITALS: BP 116/75
[2021-09-13] MEDS: GLUCERNA SHAKE 237 ML CAN PO SCH ×3 (08:59→16:05)
[2021-09-13] MEDS: FLUTICASONE/VILANTEROL 1 EACH BLST.W.DEV IH SCH (09:01)
[2021-09-13] MEDS: MUPIROCIN OINT 2% 22 GM TUBE NS SCH (09:02)
[2021-09-13] MEDS: CITALOPRAM HYDROBROMIDE 10 MG TABLET PO SCH (09:02)
[2021-09-13] MEDS: hydrALAZINE HCL 25 MG TABLET PO SCH ×3 (09:03→16:05)
[2021-09-13] MEDS: DILTIAZEM HCL CD 120 MG PO SCH (09:04)
[2021-09-13] MEDS: CHOLECALCIFEROL 1,000 UNIT TABLET (VIT D3) PO SCH (09:04)
[2021-09-13] MEDS: DOCUSATE SODIUM 100 MG CAPSULE PO SCH (09:05)
[2021-09-13] MEDS: GABAPENTIN 300 MG CAPSULE PO SCH ×3 (09:05→16:05)
[2021-09-13] MEDS: PANTOPRAZOLE 40 MG TABLET.DR PO SCH (09:05)
[2021-09-13] MEDS: ASCORBIC ACID 500 MG TABLET PO SCH (09:05)
[2021-09-13] MEDS: FERROUS SULFATE (325 MG) 325 MG/TAB TABLET PO SCH (09:05)
[2021-09-13] MEDS: LIDOCAINE 5% (PATCH) 1 EA PATCH TP SCH (09:06)
[2021-09-13] MEDS: DAKINS QUARTER STRENGTH (0.125%) 480 ML BOTTLE TOP SCH (09:07)
[2021-09-13] MEDS: VITAMINS A AND D 56.7 GM TUBE TP SCH ×2 (09:07→16:05)
[2021-09-13] MEDS: ALBUTEROL FS 2.5 MG/3 ML VIAL.NEB NEB PRN ×2 (10:50→13:55)
[2021-09-13] MEDS: IPRATROPIUM NEB FS 0.5 MG/2.5 ML AMPUL.NEB NEB PRN ×2 (10:50→13:55)
[2021-09-13] MEDS: INSULIN REGULAR, HUMAN 100 UNIT/ML 3 ML VIAL SQ PRN (12:12)
[2021-09-13 16:05] VITALS: BP 153/79
[2021-09-13] MEDS: MORPHINE SULFATE INJ 2 MG/ML DISP.SYRIN IV PRN (16:25)
--- NOTE | 2021-09-13 18:27 | NUR ---
MS CHILLER HAND NOTE PATIENT DISCHARGED VIA AMBULANCE @ 1820. STABLE, A/O X4. ON 4L OXYGEN VIA NASAL CANNULA - TOLERATING WELL. PATIENT HAS HAD MINIMAL SOB THROUGHOUT SHIFT. RECEIVED 3 BREATHING TREATMENTS THIS SHIFT. ALL EXITCARE AND DISCHARGE PAPERWORK GIVEN TO EMT'S. ATTEMPTED TO GO OVER WITH PATIENT - PATIENT REFUSED TO LISTEN. PATIENT REFUSED DISCHARGE PHOTOS - STATED THAT REPOSITIONING HIM MAKES HIM UNCOMFORTABLE AND HE CAN'T BREATHE. SACRAL DRESSING WAS CHANGED THIS AFTERNOON. IV ACCESS REMOVED. WRISTBAND REMOVED. MD AND CHARGE NURSE AWARE OF DISCHARGE.
[2021-09-13] MEDS ORDERED: methylPREDNISolone SOD SUCC 125 MG/2ML VIAL IV SCH (21:00)
== END 2021-09-13 18:00 | DRG 981 ==
LOC: ER 14:20 → MED 18:21
PROVIDERS: ADMIT Nurse Practitioner Acute Care; ATTEND Student in an Organized Health Care Education/Training Program
PROC: 0KBP0ZZ Excision of Left Hip Muscle, Open Approach (ICD-10-PCS; principal; 2021-09-10)
PROC: 0KBN0ZZ Excision of Right Hip Muscle, Open Approach (ICD-10-PCS; 2021-09-10)
DX: J44.1 Chronic obstructive pulmonary disease with (acute) exacerbation (principal); L89.154 Pressure ulcer of sacral region, stage 4; N17.0 Acute kidney failure with tubular necrosis; J96.21 Acute and chronic respiratory failure with hypoxia; J96.22 Acute and chronic respiratory failure with hypercapnia; Z20.822 Contact with and (suspected) exposure to COVID-19; Z99.3 Dependence on wheelchair; Z74.09 Other reduced mobility; Z98.890 Other specified postprocedural states; Z99.81 Dependence on supplemental oxygen; E87.5 Hyperkalemia; M19.90 Unspecified osteoarthritis, unspecified site; N40.0 Benign prostatic hyperplasia without lower urinary tract symptoms; D63.8 Anemia in other chronic diseases classified elsewhere; E11.65 Type 2 diabetes mellitus with hyperglycemia; E11.40 Type 2 diabetes mellitus with diabetic neuropathy, unspecified; E78.5 Hyperlipidemia, unspecified; F17.200 Nicotine dependence, unspecified, uncomplicated; N18.9 Chronic kidney disease, unspecified; E66.01 Morbid (severe) obesity due to excess calories; F32.A Depression, unspecified; F41.9 Anxiety disorder, unspecified; G47.30 Sleep apnea, unspecified; L60.3 Nail dystrophy; J20.9 Acute bronchitis, unspecified; R26.9 Unspecified abnormalities of gait and mobility; L85.3 Xerosis cutis; M79.605 Pain in left leg; M79.604 Pain in right leg; E11.22 Type 2 diabetes mellitus with diabetic chronic kidney disease; I12.9 Hypertensive chronic kidney disease with stage 1 through stage 4 chronic kidney disease, or unspecified chronic kidney disease; Z68.39 Body mass index [BMI] 39.0-39.9, adult; W18.30XA Fall on same level, unspecified, initial encounter; Y92.9 Unspecified place or not applicable; Z79.899 Other long term (current) drug therapy
CPT/HCPCS: 36415; 71045-TC; 80048-TC; 80061-TC; 80076-TC; 82962-TC; 83735-TC; 83880; 84100-TC; 84443-TC; 84484-TC; 85025-TC; 85730-TC; 87081-TC; 93307-TC; 94799-TC; 97530-TC; A6253; A6403; C9803; G0378; J1650; J1815; J2270; J2920; J7030; Q0177